=== PATIENT | male | born 2005 | race Two or more races ===

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

== ENCOUNTER 2023-01-16 08:38 | Day surgery (SDC) | payer OTHER ==
[~2023-01-16 08:38] MED LIST: ACETAMINOPHEN650 M2 PO; INTESTINEX680 M1 PO; LEVSIN0.125 MG PO; PEPCID AC20 MG PO
== END 2023-01-16 16:10 | disposition home or self-care (01) ==
LOC: CIR.AMB 08:38
PROVIDERS: ATTEND Colon & Rectal Surgery
DX: L05.91 Pilonidal cyst without abscess (principal); Z20.822 Contact with and (suspected) exposure to COVID-19

== ENCOUNTER 2025-02-10 08:00 | Day surgery (SDC) | payer OTHER ==
[2025-02-09 10:58] VITALS: BP 126/78
[2025-02-09 11:41] LABS: URINE APPEARANCE Clear; URINE BILIRRUBIN Negative (NEGATIVE); URINE BLOOD Negative; URINE COLOR Yellow; URINE GLUCOSE Negative (NEGATIVE); URINE KETONE Trace (NEGATIVE); URINE LEUKOCYTE Negative; URINE NITRATE Negative; URINE PROTEIN Negative (NEGATIVE); URINE UROBILINOGEN 0.2 E.U./dl
[2025-02-09 11:43] LABS: BASO % 0.2 % (0.1-1.2); EOS # 0.19 (0.04-0.54); EOS % 3.5 % (0.7-7.0); LYMPH # 1.84 (1.18-3.74); LYMPH % 33.7 % (19.3-53.1); MEAN PLATELET VOLUME 10.20 fl (9.4-12.4); MONO # 0.66 (0.24-0.82); NEUT # 2.74 (1.56-6.13); NEUT % 50.1 % (34.0-71.1); RED CELL DISTRIBUTION WIDTH 12.5 % (11.6-14.4)
[2025-02-09 11:47] LABS: URINE BACTERIA 10.7 uL (0.0-1933); URINE EPITHELIAL CELLS 3.2 uL (0.0-38.8); URINE WBC 7.5 uL (0.0-23.2)
[2025-02-09 11:51] LABS: URINE CAST 0.29 uL (0.0-1.40); URINE RBC 0.8 uL (0.0-20.8)
[2025-02-09 12:28] LABS: INR 1.05
[2025-02-09 12:42] LABS: ALT/SGPT 37.0 U/L (12-78); AST/SGOT 19.0 U/L (15-37); BILIRUBIN TOTAL 0.83 mg/dL (0.3-1.2); BUN CREA RATIO 13.0 (7.0-25.0); CREATININE SERUM 0.89 mg/dL (0.70-1.30); GFR 107.9; GLOBULINA 3.1 G/DL (2.4-3.5); GLUCOSE FASTING 80.0 mg/dL (65-100); OSMOLALITY SERUM 282.0 MOSM/KG (275-295)
[2025-02-09 12:50] LABS: MONO % 12.1 % (4.7-12.5)
[~2025-02-10] VITALS: Ht 172.7 cm; Wt 70.3 kg
[2025-02-10] MEDS ORDERED: CEFTRIAXONE SODIUM 2,000 MG VIAL ONE (09:06)
[2025-02-10] MEDS ORDERED: BUPIVACAINE HCL/MPF 0.5% 30ML VIAL ONE (10:05)
[2025-02-10] MEDS ORDERED: LIDOCAINE HCL 1%/EPINEPHRINE 20ML VIAL IJ ONE (10:06)
[2025-02-10] MEDS ORDERED: DIBUCAINE 30 GM TUBE ONE (10:15)
[2025-02-10] MEDS ORDERED: POVIDONE-IODINE 118 ML BOTT TOP ONE (10:15)
[2025-02-10] MEDS ORDERED: HEMOSTATIC MATRIX 1 KIT KIT TOP ONE (10:16)
[2025-02-10] MEDS ORDERED: THROMBIN,HU/FIBRINOGEN/CALCIUM 4 ML SYRINGE TOP ONE (10:23)
[2025-02-10] MEDS ORDERED: HYDROGEN PEROXIDE 473 ML BOTTLE TOP ONE (11:07)
== END 2025-02-10 16:10 | disposition home or self-care (01) ==
LOC: CIR.AMB 08:00
PROVIDERS: ATTEND Colon & Rectal Surgery
DX: L05.01 Pilonidal cyst with abscess (principal); Z91.018 Allergy to other foods